=== PATIENT | female | born 1945 | race African-American/Black ===

== ENCOUNTER 2016-10-21 06:34 | Day surgery (SDC) | payer OTHER ==
[2016-10-18 12:19] VITALS: BMI 24.6
[2016-10-21] MEDS ORDERED: PROPOFOL 20 ML ONE (08:22)
[2016-10-21] MEDS ORDERED: LIDOCAINE HCL/PF 2% SDV 5ML VIAL ONE (08:22)
[2016-10-21] MEDS ORDERED: LEVOFLOXACIN 500 MG PREMIX BAG IVPB ONE (08:37)
[2016-10-21] MEDS ORDERED: MIDAZOLAM HCL 2 MG/2 ML SINGLE DOSE VIAL ONE (08:41)
--- NOTE | 2016-10-21 09:07 | OP ---
Operative Note - Note: Operative Date: 10/21/16 Pre-Operative Diagnosis: bladder tumor Operation: transurethral resection and vaporization of bladder tumor Findings: 8-10 cm wide base bladder tumor with adjoining dysplasia Post-Operative Diagnosis: Same as Pre-op Surgeon: Saad Trerazas Anesthesia: General Specimens Removed: bladder tumor Estimated Blood Loss (mls): 10 Drains & Tubes with Location: [address] Operative Report Dictated: Yes
[2016-10-21] MEDS ORDERED: oxyCODONE HCL 5 MG TABLET PO PRN (09:14)
[2016-10-21] MEDS ORDERED: ONDANSETRON 4 MG/2 ML VIAL IVPUSH PRN (09:14)
--- NOTE | 2016-10-21 11:39 | OP ---
DATE OF OPERATION: 10/21/2016 PROCEDURE: 1. Transurethral resection 2. Transurethral vaporization of bladder tumor PREOPERATIVE DIAGNOSIS: Bladder tumor POSTOPERATIVE DIAGNOSIS: Bladder tumor ATTENDING: Vivek Colin MD ANESTHESIA: General OPERATION: The operation went as follows: The patient was brought to the operating room and placed in a supine position on the operating room table. General anesthesia and preoperative antibiotics were administered to the patient. The patient was then placed in a dorsal lithotomy position and prepped and draped in the usual sterile manner. A cystoscopy showed a bulky bladder tumor involving the right lateral wall, involving also the base. The right ureteral orifice was not involved with the tumor. Resection of the bladder tumor was performed in order to debulk the tumor and allow for access to the base of the tumor. Utilizing a bi-polar system, the tumor was resected and specimen sent for pathology. The base of the bladder involving the bladder wall was also resected and sent for evaluation for muscle invasion. At this point, vaporization of the residual tumor and adjoining dysplasia was performed, utilizing the button element of the bi-polar system. Vaporization was performed involving the right lateral wall and the right base to the level of the right ureteral orifice. Care was taken to avoid any trauma to the right ureteral orifice. The area of involvement included a 10 cm x 5 cm area. Excellent hemostasis was obtained. No evidence of perforation was noted. The patient was left with a 22-Vincentian catheter to straight drainage. Clear drainage was noted. The disposition of the patient was to recovery room. The estimated blood loss was less than 10 mL. VIVEK COLIN M.D. [id number]
[2016-10-21 12:50] VITALS: BP 161/73; PULSE 65
[2016-10-21 12:53] VITALS: TEMP 97.8
--- NOTE | 2016-10-22 13:07 | PATH ---
Surgical Pathology Report Patient Name: JUANA GIMENEZ [facility]. Rec. #: [id number] /Age/Gender: 1945 (Age: 71) / F Account: [id number] Location: [facility] Taken: 10/21/2016 Received: 10/21/2016 Reported: 10/22/2016 Physicians: Saad Terrazas Specimen(s) Received BLADDER TUMOR Clinical History Bladder tumor Final Diagnosis BLADDER, TUR: LOW GRADE PAPILLARY UROTHELIAL CARCINOMA. LAMINA PROPRIA INVASION: NOT IDENTIFIED IN THE EXAMINED MATERIAL. MUSCULARIS PROPRIA (DETRUSOR): NOT IDENTIFIED. CARCINOMA IN SITU (CIS): NOT IDENTIFIED. Electronically Signed Bala Luis M.D. Gross Description Received in formalin labeled "bladder tumor" is a 2.3 x 2.2 x 0.3 cm aggregate of bautista-pink soft tissue fragments. The formalin is filtered and the specimen is entirely submitted in one cassette. /10/21/2016 saudi10/21/2016
== END 2016-10-21 12:30 | disposition home or self-care (01) ==
LOC: JASU-SURG 06:34
PROVIDERS: ATTEND Urology
PROC: 0T5B8ZZ Destruction of Bladder, Via Natural or Artificial Opening Endoscopic (ICD-10-PCS; principal; 2016-10-21 08:00)
DX: C67.9 Malignant neoplasm of bladder, unspecified (principal)
CPT/HCPCS: 88307-TC; 94760

== ENCOUNTER 2017-08-25 12:06 | Day surgery (SDC) | payer OTHER ==
[2017-08-22 15:13] VITALS: BMI 21.2
[~2017-08-25 12:06] MED LIST: LEVOFLOXACIN 500 MG PREMIX BAG IVPB ONE
[2017-08-25] MEDS ORDERED: MIDAZOLAM HCL 2 MG/2 ML SINGLE DOSE VIAL ONE (15:11)
[2017-08-25] MEDS ORDERED: PROPOFOL 20 ML ONE ×2 (15:11→17:03)
[2017-08-25] MEDS ORDERED: LEVOFLOXACIN 500 MG IVPB 500 MG/100 ML BAG IVPB ONE (16:40)
[2017-08-25] MEDS ORDERED: LEVOFLOXACIN 500 MG PREMIX BAG IVPB ONE (16:50)
[2017-08-25] MEDS ORDERED: DEXAMETHASONE SOD PHOSPHATE 4 MG/1 ML VIAL ONE (17:02)
[2017-08-25] MEDS ORDERED: ACETAMINOPHEN 325 MG TABLET (FP) PO PRN (17:41)
[2017-08-25] MEDS ORDERED: KETOROLAC TROMETHAMINE 30 MG/1 ML VIAL IVPUSH ONE (17:41)
--- NOTE | 2017-08-25 17:56 | OP ---
Operative Note - Note: Operative Date: 08/25/17 Pre-Operative Diagnosis: recurrent bladder tumor Operation: turbt and bladder biopsy Findings: posterior wall neoplasm measurenig 3 cm by 3 cm bladder biopsy of left lateral wall performed Post-Operative Diagnosis: Same as Pre-op Surgeon: Saad Terrazas Anesthesia: General
[2017-08-25 17:58] VITALS: TEMP 97.9
[2017-08-25 19:00] VITALS: PULSE 60
[2017-08-25 20:27] VITALS: BP 191/73
--- NOTE | 2017-08-28 12:55 | PATH ---
Surgical Pathology Report Patient Name: JUANA GIMENEZ [facility]. Rec. #: [id number] /Age/Gender: 1945 (Age: 72) / F Account: [id number] Location: [facility] SUR[facility] Taken: 08/26/2017 Received: 08/26/2017 Reported: 08/28/2017 Physicians: Saad Terrazas Specimen(s) Received A: BLADDER TUMOR B: BLADDER BIOPSY Clinical History Bladder tumor Final Diagnosis A. BLADDER, TUMOR, TRANSURETHRAL RESECTION OF BLADDER TUMOR: PREDOMINANTLY DENUDED UROTHELIAL MUCOSA WITH MILD ACUTE AND CHRONIC INFLAMMATION. B. BLADDER, BIOPSY: DENUDED UROTHELIAL MUCOSA WITH MILD CHRONIC INFLAMMATION. Comment: Paucity/absence of urothelial mucosa, precludes definitive histologic evaluation. Suggest clinical/radiologic correlation. Electronically Signed Helen Coppola M.D. Gross Description A. Received in formalin labeled "bladder tumor," are 3 bautista soft tissue fragments ranging from 0.1-0.2 cm in greatest dimension. The specimen is submitted in toto in one cassette. B. Received in formalin labeled "bladder biopsy," is a 0.2 cm greatest dimension bautista soft tissue fragment. The specimen is submitted in toto in one cassette. 08/26/2017 saudi08/26/2017
== END 2017-08-25 19:50 | disposition home or self-care (01) ==
LOC: JOR 12:06 → JASU-SURG 12:06
PROVIDERS: ATTEND Urology
PROC: 0T5B8ZZ Destruction of Bladder, Via Natural or Artificial Opening Endoscopic (ICD-10-PCS; principal; 2017-08-25 13:30)
DX: D30.3 Benign neoplasm of bladder (principal); N30.90 Cystitis, unspecified without hematuria
CPT/HCPCS: 88305-TC; 94760